=== PATIENT | male | born 2000 | race Caucasian/White ===

== ENCOUNTER 2024-03-01 17:17 | Emergency (ER) | payer OTHER, SELFPAY ==
[2024-03-01 17:29] VITALS: BP 115/83; PULSE 87; TEMP 36.7; O2SAT 98; BMI 22.4
--- NOTE | 2024-03-01 17:35 | XR_ITS ---
The [address] [address] Patient Name: ISRAEL HUFFMAN MRN: [id number] date: 2000 Sex: M Assigned Patient Location: ER Current Patient Location: ER Accession/Order Number: [id number] Exam Date: 03/01/2024 17:40 Report Date: 03/01/2024 19:31 At the request of: LIZA ZHOU Procedure: XR ankle LT min 3V EXAM: XR ankle LT min 3V HISTORY: The patient is a 24-year-old male, injury COMPARISON: None. FINDINGS: No acute or ununited fractures are seen within or around the ankle joint. The lateral side of the ankle mortise is slightly widened, and there is swelling of the soft tissues overlying the lateral malleolus. The findings are suggestive of a lateral ligamentous injury. The width of the syndesmosis is maintained. Incidentally noted is a nonaggressive appearing sclerotic lesion anteriorly within the distal tibial diaphysis, measuring 2.7 cm in length. I suspect this represents a benign fibro-osseous lesion such as a nonossifying fibroma. If the patient continues to be symptomatic following the resolution of this acute injury, additional imaging may be necessary. XR/XR ankle LT min 3V IMPRESSION: As above. Electronically authenticated by: RALPH BRIAN Date: 03/01/2024 19:31
--- NOTE | 2024-03-01 17:35 | XR_ITS ---
The [address] [address] Patient Name: ISRAEL HUFFMAN MRN: [id number] date: 2000 Sex: M Assigned Patient Location: ER Current Patient Location: ED.MAIN Accession/Order Number: [id number] Exam Date: 03/01/2024 17:40 Report Date: 03/01/2024 19:27 At the request of: LIZA ZHOU Procedure: XR foot LT min 3V EXAM: XR foot LT min 3V HISTORY: The patient is a 24-year-old male, twisted COMPARISON: None. FINDINGS: No acute or ununited fractures are seen throughout the left foot. The widths and alignment of all the joints are maintained. XR/XR foot LT min 3V IMPRESSION: Negative. Electronically authenticated by: RALPH BRIAN Date: 03/01/2024 19:27
[2024-03-01] MEDS: HYDROCODONE/ACET 5-325 MG TABLET 1 TAB PO (19:14)
[2024-03-01] MEDS: KETOROLAC TROMETHAMINE 10 MG TABLET PO (19:14)
--- NOTE | 2024-03-01 19:24 | ED_ITS ---
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 He inverted the left ankle and complains of pain over the medial and lateral aspect of the ankle into the foot. No other associated injuries. No medications taken prior to arrival Related Data Home Medications ?Medication ?Instructions ?Recorded ?Confirmed cefdinir 300 mg capsule 300 mg PO Q12H 03/01/24 03/01/24 Previous Rx's ?Medication ?Instructions ?Recorded ketorolac 10 mg tablet 10 mg PO TID PRN pain #10 tabs 03/01/24 Allergies Allergy/AdvReac Type Severity Reaction Status Date / Time No Known Drug Allergies Allergy Verified 03/01/24 17:34 Opioid HPI Opioid Management Most Recent Pain and Opioid Data: Last Pain Scale 10 03/01/24 19:18 03/01/24 Review of Systems ROS Constitutional Denies: fever or chills Ears, nose, mouth, and throat Denies: throat pain Cardiovascular Denies: chest pain Respiratory Denies: shortness of breath Gastrointestinal Denies: nausea or vomiting Musculoskeletal Reports: extremity pain, extremity swelling and joint pain; Denies: back pain or neck pain Integumentary/Breast Denies: rash Neurological Denies: numbness in extremities or weakness in extremities Hematologic/Lymphatic Denies: easy bruising or easy bleeding PFSH PFSH Social History Little interest or pleasure in doing things: not at all Feeling down, depressed, or hopeless: not at all Exam Narrative Exam Narrative: Gen.: Awake, alert, in no distress Head: Normocephalic, atraumatic ENT: Moist mucous membranes Respiratory: No respiratory distress Extremities: Moves extremities equally, normal flexion extension of the toes of the left foot with diffuse swelling of the left lateral malleolus and minimally of the medial malleolus. No obvious deformity Psych: Normal mood and affect Neuro: No focal neuro deficit Skin: Warm, dry, intact Constitutional Vital Signs, click to edit/add: Last Vital Signs Temp 98.1 F 03/01/24 17:29 Pulse 87 03/01/24 17:29 Resp 16 03/01/24 17:29 BP 115/83 03/01/24 17:29 Pulse Ox 98 03/01/24 17:29 O2 Del Method Room Air 03/01/24 17:29 Course Vital Signs Vital signs: Vital Signs Temperature 98.1 F 03/01/24 17:29 Pulse Rate 87 03/01/24 17:29 Respiratory Rate 16 03/01/24 17:29 Blood Pressure 115/83 03/01/24 17:29 Pulse Oximetry 98 03/01/24 17:29 Oxygen Delivery Method Room Air 03/01/24 17:29 Temperature 98.1 F 03/01/24 17:29 Pulse Rate 87 03/01/24 17:29 Respiratory Rate 16 03/01/24 17:29 Blood Pressure 115/83 03/01/24 17:29 Pulse Oximetry 98 03/01/24 17:29 Oxygen Delivery Method Room Air 03/01/24 17:29 MDM - Extremity Injury (Lower) MDM Narrative Medical decision making narrative: X-rays were reviewed by the radiologist of the left foot and ankle showing no evidence of acute fracture or dislocation, there is evidence of 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 Patient and his mother at bedside were made aware of this finding and given orthopedic follow-up for reevaluation of the area. He is neurovascularly intact pre and post hardware application of Julien wrap and Aircast. They have crutches at home. Rest, ice, elevate. NSAIDs given for home. Return to the ER if symptoms change or worsen SUPERVISED APC VISIT, PHYSICIAN ATTESTATION: Based on the medical record the care appears appropriate. ? Medical Records Attestation: I reviewed the patient's medical records. Imaging Data xr foot: Attestation: I have reviewed the pertinent imaging results. Radiologist's impression: ITS Impressions Ankle X-Ray 03/01/24 17:35 IMPRESSION: As above. Electronically authenticated by: RALPH BRIAN Date: 03/01/2024 19:31 Foot X-Ray 03/01/24 17:35 IMPRESSION: Negative. Electronically authenticated by: RALPH BRIAN Date: 03/01/2024 19:27 Discharge Plan Discharge Chief Complaint: Extremity Injury, Lower Clinical Impression: Left ankle sprain Patient Disposition: Home, Self-Care Time of Disposition Decision: 19:35 Condition: Good Prescriptions / Home Meds: New ketorolac 10 mg tablet 10 mg PO TID PRN (Reason: pain) Qty: 10 0RF No Action cefdinir 300 mg capsule 300 mg PO Q12H Print Language: British Instructions: Ankle Sprain (ED) Referrals: CHRISTY SALAZAR [Primary Care Provider] - 1 week Reji Ayala MD [Physician] - As needed
== END 2024-03-01 19:53 | disposition home or self-care (01) ==
PROVIDERS: Emergency Provider Emergency Medicine; PCP Family Medicine
DX: S93.402A Sprain of unspecified ligament of left ankle, initial encounter (principal); X50.1XXA Overexertion from prolonged static or awkward postures, initial encounter
CPT/HCPCS: 73610; 73630; 99284

== ENCOUNTER 2025-01-05 15:41 | Emergency (ER) | payer OTHER, SELFPAY ==
--- OUTSIDE RECORDS SUMMARY | 2025-01-05 15:45 | XMS_ITS | CCD ---
Author Organization [facility] ion Partnership VIDEO AND SOUND RECORDER [facility] Results Test Name Value Interpretation Reference Range Facil ity No Panel InformationOrdered By: Seun Mohan on 02-27-2024 Quick Strep (POC) [facility] Jocelyn Ag Negativeon 12-04-19 21 Jocelyn Ag Negative Negative Normal Negative [facility] Comment on above: Result Comment: This is a duplicate Jocelyn SARS Antigen (TRACY) result to be used for statistical tracking purpose only. PERFORMED BY: [place] [id number] PATHOLOGIST INTERNATIONAL GUEST COORDINATOR GENESIS FRANKLIN M.D. Performed By: #### S YUE COVID-19 JOCELYN #### [address] Encounters Encounter Date Encounter Type Care Provider Facility Start: 02-27-2024 End: 02-27-2024 ambulatory [facility] Work Phone: Start: 02-27-2024 End: 02-27-2024 Patient encounter procedure [facility] [place] Work Phone: Procedures Date Procedure Procedure Detail Performing Clinician Start: 02-27-2024 Quick Strep (POC) Payers Date Payer Category Payer Policy ID Unknown MMO [id number] 18 [id number] Unknown Sariah BC/BS [id number] 9e [id number] Social History Date Type Detail Facility Start: 12-17-2015 Tobacco smoking stat us [facility] Never smoked tobacco (finding) [facility] Start: 02-27-2024 Sex Male (finding) [facility] Start: 2000 Sex Assigned At Male [facility] Clinical Note 12-03-2020 Note Date & Type Note Facility 12-03-2020 Note Reason for Exam Expo sure to COVID-19 virus Nasal Reason for Exam: Exposure to COVID-19 virus Healthcare Worker?: N : Nasal Jocelyn Reference ---- Jocelyn Reference Negative SARS-CoV+SARS-CoV-2 (COVID-19) Ag [Presence] in Respiratory specimen by Rapid immunoassay Negative for SARS Antigen by TRACY COVID19 Blank Space Jocelyn Disclaimer Negative results, from patients with symptom Jocelyn Disclaimer onset beyond five days, should be treated as Jocelyn Disclaimer presumptive and confirmation with a molecular Jocelyn Disclaimer assay, if necessary, for patient management, Jocelyn Disclaimer may be performed. Negative results do not rule Jocelyn Disclaimer out COVID-19 and should not be used as the sole Jocelyn Disclaimer basis for treatment or patient management Jocelyn Disclaimer decisions, including infection control decisions. Jocelyn Disclaimer Negative results should be considered in the Jocelyn Disclaimer context of a patient's recent exposures, history Jocelyn Disclaimer and the presence of clinical signs and symptoms Jocelyn Disclaimer consistent with COVID-19. COVID19 Blank Space Jocelyn Disclaimer The Jocelyn SARS Antigen TRACY does not differentiate Jocelyn Disclaimer between SARS-CoV and SARS-CoV-2. COVID19 Blank Space Jocelyn Disclaimer This test was developed and its performance Jocelyn Disclaimer characteristic determined by [employer] and Jocelyn Disclaimer validated at [facility]. This Jocelyn Disclaimer test has not been FDA cleared or approved. This Jocelyn Disclaimer test has been authorized by FDA under an Emergency Use Jocelyn Disclaimer Authorization (EUA). This test has been validated Jocelyn Disclaimer in accordance with the FDA's Guidance Document (Policy Jocelyn Disclaimer for Diagnostics Testing in Laboratories Certified to Jocelyn Disclaimer Perform High Complexity Testing under CLIA prior to Jocelyn Disclaimer Emergency Use Authorization for Coronavirus Jocelyn Disclaimer iseas during the Public Health Emergency) Jocelyn Disclaimer issued on July 19, 2019. This test is only authorized Jocelyn Disclaimer for the duration of time the declaration that Jocelyn Disclaimer circumstances exist justifying the authorization of Jocelyn Disclaimer the emergency use of in vitro diagnostic tests for Jocelyn Disclaimer detection of SARS-CoV-2 virus and/or diagnosis of Jocelyn Disclaimer COVID-19 infection under section 564(b)(1) of the Jocelyn Disclaimer Act, 21 U.S.C. 360bbb-3(b)(1), unless the Jocelyn Disclaimer authorization is terminated or revoked sooner. PERFORMED BY: [place] [address] PATHOLOGIST INTERNATIONAL GUEST COORDINATOR GENESIS FRANKLIN M.D. [facility] Comment on above: Performed By: #### S YUE, COVID-19 JOCELYN #### [address] Evaluation note Note Date & Type Note Facility Evaluation note Authored February 27, 2024 1:01pm Brook CRUZ [facility] Work Phone: Summary Purpose Family History Relationship Condition Age at Onset Recorded Date/T kanika father Heart disease Unknown Unknown Advance Directives Advance Directive Response Recorded Date/ Time Advance Directives No December 03, 2020 10:02am Chief Complaint and Reason for Visit Chief Complaint Admit Date sore throat - orange truck February 12:51pm Additional Source Comments (unrecognized sect ion and content) No Status Records Found INFORMATION SOURCE (unrecogn ized section and content) DATE CREATED AUTHOR 05/11/2021 [facility] Care Teams (unrecognized sec tion and content) Team Status: Active Member Role Status Dates Seun Mohan DO Primary Care Provider Active Team Status: Inactive Member Role Status Dates Seun Mohan DO Primary Care Provide r, Attending Provider Active Start: February 27, 2024 End: February 27, 2024 Goals (unrecognized section and content) Goals may be documented in a n alternate section FOR RECORDS PERTAINING TO PATIENTS WHO ARE OR HAVE BEEN ENROLLED IN A CHEMICAL DEPENDENCY/SUBSTANCEABUSE PROGRAM, SOME INFORMATION MAY BE OMITTED. This clinical summary was aggregated from multiple sources. Caution should be exercised in using it in the provision of clinical care. This summary normalizes information from multiple sources, and as a consequence, information in this document may materially change the coding, format and clinical context of patient data. In addition, data may be omitted in some cases. CLINICAL DECISIONS SHOULD BE BASED ON THE PRIMARY CLINICAL RECORDS. [employer] provides no warranty or guarantee of the accuracy or completeness of information in this document.
[2025-01-05 15:47] VITALS: BP 151/85; PULSE 71; TEMP 36.6; O2SAT 97; BMI 24.4
--- NOTE | 2025-01-05 15:53 | ECG_ITS ---
The [facility] Test Date: 2025-01-05 Pat Name: ISRAEL HUFFMAN Department: Room: - Gender: Male [employer]: : 2000 Requested By: [id number] Order Number: [id number] Reading MD: SHERRY JUSTIN M.D. Measurements Intervals [place] Rate: 69 P: 57 MI: 166 QRS: 91 QRSD: 104 T: 56 QT: 382 QTc: 401 Interpretive Statements 1100 Sinus rhythm 7102 Moderate right axis deviation Borderline ECG No previous ECG available for comparison Electronically Signed On 01-06-2025 13:52:55 EDT by SHERRY JUSTIN M.D.
--- NOTE | 2025-01-05 16:17 | ED_ITS ---
HPI HPI - General Adult General Chief complaint: Upper Respiratory Infection Stated complaint: chest pains Time Seen by Provider: 01/05/25 15:56 Source: patient Mode of arrival: walk-in Limitations: no limitations History of Present Illness HPI narrative: 24-year-old male presents for nasal congestion and chest congestion and slight cough. Symptoms began 3 days ago. He has been coughing up some yellow phlegm. No known ill contacts. No vomiting or diarrhea. He is not a smoker and has no history of lung disease. Related Data Previous Rx's ?Medication ?Instructions ?Recorded benzonatate 100 mg capsule 100 mg PO TID PRN cough #20 caps 01/05/25 loratadine 5 mg-pseudoephedrine ER 1 tab PO Q12H PRN n yifan congestion 01/05/25 120 mg tablet,extended #20 tabs release,12hr (Claritin-D 12 Hour) Allergies Allergy/AdvReac Type Severity Reaction Status Date / Time No Known Drug Allergies Allergy Verified 01/05/25 15:55 Opioid HPI Opioid Management Most Recent Opioid Data: Last Pain Scale 10 Today, 15:47 Review of Systems ROS Narrative A ten point review of systems is negative except as noted above. PFSH PFSH Social History Little interest or pleasure in doing things: not at all Feeling down, depressed, or hopeless: not at all Exam Narrative Exam Narrative: Nurses note and vital signs reviewed and patient is not hypoxic. General: The patient appears well and in no apparent distress. Patient is resting comfortably on cart. Skin: Warm, dry, no pallor noted. There is no rash noted. Head: Normocephalic, atraumatic Eye: Normal conjunctiva, no drainage Ears, Nose, Mouth, and Throat: oral mucosa is moist. Nares patent. Nasal congestion is noted. Cardiovascular: Regular Rate and Rhythm Respiratory: Patient is in no distress, no accessory muscle use, lungs are clear to auscultation, no wheezing, rales or rhonchi Back: non-tender GI: Soft and nontender Musculoskeletal: The patient has no evidence of calf tenderness, no pitting edema, symmetrical pulses noted bilaterally Neurological: A&O, normal speech Psychiatric: Cooperative Constitutional Vital Signs, click to edit/add: Last Vital Signs Temp 97.8 F 01/05/25 15:47 Pulse 71 01/05/25 15:47 Resp 18 01/05/25 15:47 BP 151/85 H 01/05/25 15:47 Pulse Ox 97 01/05/25 15:47 O2 Del Method Room Air 01/05/25 15:47 Course Vital Signs Vital signs: Vital Signs Temperature 97.8 F 01/05/25 15:47 Pulse Rate 71 01/05/25 15:47 Respiratory Rate 18 01/05/25 15:47 Blood Pressure 151/85 H 01/05/25 15:47 Pulse Oximetry 97 01/05/25 15:47 Oxygen Delivery Method Room Air 01/05/25 15:47 Temperature 97.8 F 01/05/25 15:47 Pulse Rate 71 01/05/25 15:47 Respiratory Rate 18 01/05/25 15:47 Blood Pressure 151/85 H 01/05/25 15:47 Pulse Oximetry 97 01/05/25 15:47 Oxygen Delivery Method Room Air 01/05/25 15:47 Medical Decision Making MDM Narrative Medical decision making narrative: His workup is negative including chest x-ray, COVID, and influenza test. Antib iotic is not indicated and he will be treated symptomatically. Treatment diagnosis and follow-up were discussed with the patient. Differential Diagnosis Differential Diagnosis: Pneumonia, COVID, influenza, viral URI Lab Data Lab results reviewed: Yes I reviewed the patient's lab results Labs: Lab Results 01/05/25 Range/Units 16:25 Influenza Type A Ag Negative Influenza Type B Ag Negative SARS-CoV-2 Ag (CV2AG) Negative (NEGATIVE) Imaging Data Chest x-ray: Radiologist's impression: ITS Impressions Chest X-Ray 01/05/25 16:20 IMPRESSION: Negative for acute pleural-parenchymal disease Impression dictated by: Julian Garcia M.D. 01/05/2025 5:13 PM Dictation Location: [place] [address] Electronically authenticated by: [id number] Y Date: 01/05/2025 17:13 ECG Data Attestation: I personally reviewed and interpreted this ECG as follows: (EKG on my interpretation shows sinus rhythm with a rate of 69 and no acute change) Discharge Plan Discharge Chief Complaint: Upper Respiratory Infection Clinical Impression: Viral URI Patient Disposition: Home, Self-Care Time of Disposition Decision: 17:31 Condition: Good Mode of Transportation: Private Vehicle Prescriptions / Home Meds: New benzonatate 100 mg capsule 100 mg PO TID PRN (Reason: cough) Qty: 20 0RF Claritin-D 12 Hour 5-120 mg tablet extended release 12 hr 1 tab PO Q12H PRN (Reason: nasal congestion) Qty: 20 0RF Print Language: Luxembourgish Instructions: Upper Respiratory Infection (ED) Referrals: CHRISTY SALAZAR [Primary Care Provider, Family Practice] - 1 week
--- NOTE | 2025-01-05 16:20 | XR_ITS ---
The [place] [id number] Patient Name: ISRAEL HUFFMAN MRN: [id number] date: 2000 Sex: M Assigned Patient Location: ER Current Patient Location: ED.MAIN Accession/Order Number: [id number] Exam Date: 01/05/2025 16:45 Report Date: 01/05/2025 17:13 At the request of: JACKIE MENJIVAR MD Procedure: XR chest 1V PA CHEST: CLINICAL HISTORY: Cough, congestion COMPARISON: None The heart is normal in size. The lungs are clear. The pulmonary vasculature is normal. Mediastinum and hilar regions are unremarkable. No pleural effusions are seen. Visualized bones are intact. XR/XR chest 1V IMPRESSION: Negative for acute pleural-parenchymal disease Impression dictated by: Julian Garcia M.D. 01/05/2025 5:13 PM Dictation Location: [place] [address] Electronically authenticated by: [id number] Y Date: 01/05/2025 17:13
[2025-01-05 16:48] LABS: SARS-CoV-2 Ag NEGATIVE (NEGATIVE)
[2025-01-05 17:43] VITALS: BP 130/80; PULSE 78; O2SAT 99
== END 2025-01-05 17:43 | disposition home or self-care (01) ==
PROVIDERS: Emergency Provider Emergency Medicine; PCP Family Medicine
DX: J06.9 Acute upper respiratory infection, unspecified (principal)
CPT/HCPCS: 71045; 87804; 87811; 93005; 99285